=== PATIENT | female | born 1980 | race Hispanic/Latino ===

== ENCOUNTER 2022-08-31 21:18 | Emergency (ER) | payer OTHER ==
[~2022-08-31] VITALS: Ht 165.1 cm; Wt 68.0 kg
[2022-08-31] MEDS ORDERED: SODIUM CHLORIDE 0.9% 1000ML 1,000 ML ONE (21:52)
[2022-08-31] MEDS ORDERED: IOPAMIDOL 370 MG/ML 100 ML INFUS..BTL INJ ONE (21:59)
[2022-08-31] MEDS ORDERED: SODIUM CHLORIDE 0.9% 1000ML 1,000 ML IV ONE (22:00)
== END 2022-08-31 23:36 | disposition home or self-care (01) ==
LOC: FSED 21:22
DX: K62.5 Hemorrhage of anus and rectum (principal); R14.0 Abdominal distension (gaseous)
CPT/HCPCS: 74177; 80053; 81025; 85025; 99283; J7030; Q9967

== ENCOUNTER 2024-05-03 20:03 | Emergency (ER) | payer OTHER ==
[~2024-05-03] VITALS: Ht 165.1 cm; Wt 70.3 kg
[2024-05-03 20:03] VITALS: PULSE 86; RESP 18; TEMP 97.8
[2024-05-03 20:23] VITALS: BP 126/71; PULSE 86; RESP 20; TEMP 97.8; O2SAT 100
== END 2024-05-03 20:27 | disposition home or self-care (01) ==
LOC: FSED 20:09
DX: H93.13 Tinnitus, bilateral (principal); F41.9 Anxiety disorder, unspecified
CPT/HCPCS: 99282